=== PATIENT | male | born 1965 | race Caucasian/White ===

== ENCOUNTER 2022-07-23 10:56 | Day surgery (SDC) | payer OTHER ==
[~2022-07-23] VITALS: Ht 175.3 cm; Wt 88.5 kg
[2022-07-23] MEDS ORDERED: SYNTHROID75 MCG PO (11:22)
--- NOTE | 2022-07-23 12:35 | NUR ---
07/23/22 1235 Cinthia Osorio 1231 PT ARRIVED WITH EYES OPEN AND RESONDING TO QUESTIONS. 3LPM NC NONLABORED BREATHING. DENIES PAIN AND NAUSEA.
--- NOTE | 2022-07-23 20:49 | OR ---
[facility] [address], [place] [address] Signed DATE OF OPERATION: 07/23/2022 SURGEON: Alfredo Corcoran MD PREOPERATIVE DIAGNOSES: 1. Gastroesophageal reflux symptoms with dysphagia. 2. Colon screening. POSTOPERATIVE DIAGNOSES: 1. Ulcerative distal esophagitis with low-grade stricture, no evidence of malignancy; associated hiatal hernia. 2. Normal colon to cecum. PROCEDURES: 1. Esophagogastroduodenoscopy with biopsy. 2. Total colonoscopy to cecum. ANESTHESIA: Intravenous sedation, fentanyl 150 mcg and Versed 9 mg (total). INDICATIONS: This 57-year-old white man is from [place], [place], is self-referred for consideration of colon screening based on his age as well as complaints of gastroesophageal reflux with dysphagia, particularly to bread. He has no family history of colon cancer and no bleeding, diarrhea, or constipation. As regard to his reflux symptoms, he has variably taken medication in the past, but has dysphagia primarily to bread, but no hematemesis or weight loss. He has substernal burning pain and epigastric pain. He is admitted to undergo upper endoscopy and colonoscopy concurrently, understand the risks of bleeding, infection, and perforation. FINDINGS: Upper endoscopy did show ulcerative distal esophagitis, but no evidence of Napoles epithelium and no sign of malignancy. There was a low-grade inflammatory stricture. The hiatal hernia was also noted. The stomach and duodenum were otherwise normal. The mid esophagus was normal as well. On colonoscopy, the prep was excellent. Complete colonoscopy to the cecum showed no sign of polyps, diverticular formation, colitis, or cancer. DESCRIPTION OF PROCEDURE: Electronically Signed By: ALFREDO CORCORAN MD 07/23/22 2049 PATIENT NAME: NANCY SOLIS OPERATIVE REPORT DATE OF : 69 REPORT #: [id number] PHYSICIAN: ALFREDO CORCORAN MD PCP: NO PRIMARY CARE PHYSICIAN REPORT IS CONFIDENTIAL AND NOT TO BE RELEASED WITHOUT AUTHORIZATION [facility] [address], [place] [address] Signed The patient was brought to the endoscopy suite given topical lidocaine, hypopharyngeal anesthesia and placed in lateral decubitus position. He was given intravenous sedation to the point of slurred speech and nystagmus. A bite block was placed. An Olympus video upper endoscope was passed in the hypopharynx. The vocal cords appeared normal. The scope was advanced to the esophagus without problem throughout its length it was normal except in the distal portion, where there was ulcerative changes and low-grade stricturing. There was no sign of Napoles epithelium proper, no sign of malignancy. Scope was passed into the stomach, which was insufflated with air. Rugal folds appeared normal. Excess gastric juices were suctioned free. The antrum was normal as was the pylorus. The scope was passed through into the duodenum, which was normal. Biopsies were taken of the second and bulbar portions to assess for celiac disease. The scope was withdrawn. Biopsies taken of the antrum for both FERNANDO and pathologic testing. Retroflexed view was undertaken showing a glvgskyl-yv-rmzgi hiatal hernia. The scope was withdrawn and biopsies taken multiple of the distal esophageal inflammatory area including a low-grade stricture. Further withdrawal of scope allowed for biopsy of the midesophagus, which showed no clinical or endoscopic evidence of stricture or eosinophilic esophagitis. Further withdrawal of scope showed no other findings. Plans were then made for colonoscopy. Digital rectal examination was performed and additional sedation given. The Olympus video colonoscope was passed into the rectum and manipulated throughout the colon ultimately intubating the cecum itself. The ileocecal valve and appendiceal orifice were normal. Scope was withdrawn from that point and examination throughout showed no sign of polyps, diverticular formation, colitis, or cancer. Retroflexed view was normal as well. The scope was removed. The patient was taken to the recovery room in good condition. CONCLUDING DIAGNOSES: 1. Normal colon to cecum. 2. Gastroesophageal reflux related ulcerative low-grade stricture and hiatal hernia. PLAN: We will initiate Prilosec 20 mg p.o. daily. We will see him back in the office in 4-6 weeks and review his pathology report. We would recommend repeat colonoscopy in 10 years or sooner if clinically indicated. Alfredo Corcoran MD /PIPO /[id number] Electronically Signed By: ALFREDO CORCORAN MD 07/23/229 PATIENT NAME: NANCY SOLIS OPERATIVE REPORT DATE OF : 69 REPORT #: [id number] PHYSICIAN: ALFREDO CORCORAN MD PCP: NO PRIMARY CARE PHYSICIAN REPORT IS CONFIDENTIAL AND NOT TO BE RELEASED WITHOUT AUTHORIZATION [address] [address] Signed Copies: ~ Electronically Signed By: ALFREDO CORCORAN MD 07/23/22 2049 PATIENT NAME: ALLAN SOLISTala CORLEY OPERATIVE REPORT DATE OF : 69 REPORT #: [id number] PHYSICIAN: ALFREDO CORCORAN MD PCP: NO PRIMARY CARE PHYSICIAN REPORT IS CONFIDENTIAL AND NOT TO BE RELEASED WITHOUT AUTHORIZATION
--- NOTE | 2022-07-25 16:00 | PATH ---
[facility] [address], [place] [address] Signed SPECIMEN(S): A DUODENAL BIOPSY SPECIMEN(S): B ANTRUM BIOPSY SPECIMEN(S): C DISTAL ESOPHAGEAL BIOPSY SPECIMEN(S): D MIDDLE ESOPHAGEAL BIOPSY SPECIMEN SOURCE: A. DUODENAL BIOPSY B. ANTRUM BIOPSY C. DISTAL ESOPHAGEAL BIOPSY D. MIDDLE ESOPHAGEAL BIOPSY CLINICAL HISTORY: Screening; dysphagia, distal esophageal stricture, small hiatal hernia, esophagitis (erosive), normal colon. FINAL PATHOLOGIC DIAGNOSIS: A. Duodenal biopsy: - Benign duodenal mucosa, negative for specific diagnostic abnormality. B. Antrum biopsy: - Benign gastric antral-type mucosa with slight reactive features. - Negative for evidence of Helicobacter organisms on routine HE stained sections. C. Distal esophageal biopsy: - Esophageal mucosa with focal epithelial ulceration and mixed acute inflammation. - PAS with diastase stain is negative for organisms. - A cytokeratin AE 1/3 immunostain is negative for occult carcinoma. D. Middle esophageal biopsy: - Benign esophageal mucosa, negative for increased epithelial eosinophils. JVR:renetta:[id number] MICROSCOPIC EXAMINATION: Histologic sections of all submitted blocks are examined by light microscopy. These findings, together with the gross examination, support the pathologic diagnosis. Immunos and special stains are performed with appropriate controls on block (C1) and show the following: - PAS with diastase: Negative for fungal organisms. - CK AE1/3: Negative for occult carcinoma. JVR:renetta PATIENT NAME: ALLAN NORIEGATala CORLEY PATHOLOGY DATE OF : 69 REPORT #: [id number] PHYSICIAN: KARTHIK PATHOLOGY PCP: NO PRIMARY CARE PHYSICIAN REPORT IS CONFIDENTIAL AND NOT TO BE RELEASED WITHOUT AUTHORIZATION [facility] [address], [place] [address] Signed GROSS DESCRIPTION: A. The specimen, labeled and designated "Noriega, duodenum biopsy," is received in formalin and consists of two shin soft tissue fragments, ranging from 0.1-0.2 cm. Entirely submitted in (A1). B. The specimen, labeled and designated "Noriega, antrum biopsy," is received in formalin and consists of one shin soft tissue fragment, 0.1 cm. Entirely submitted in (B1). C. The specimen, labeled and designated "Noriega, distal esophagus stricture biopsy," is received in formalin and consists of four shin soft tissue fragments, ranging from 0.1-0.2 cm. Entirely submitted in (C1). D. The specimen, labeled and designated "Noriega, middle esophagus biopsy," is received in formalin and consists of three shin soft tissue fragments, ranging from 0.2-0.5 cm. Entirely submitted in (D1). JS (under the direct supervision of a pathologist) The Gross Description was prepared using a voice recognition system. The report was reviewed for accuracy; however, sound-alike word errors, addition and/or deletions may occur. If there is any question about this report, please contact Client Services. ADDITIONAL NOTES: Immunohistochemical and/or in situ hybridization studies were performed on this case with the appropriate positive controls that react as expected. This test was developed and its performance characteristics determined by [facility]. It has not been cleared or approved by the U.S. Food and Drug Administration. The FDA has determined that such clearance or approval is not necessary. This test is used for clinical purposes. It should not be regarded as investigational or for research. [facility] is certified under the Clinical Laboratory Improvement Amendments of 1988 (CLIA) as qualified to perform high complexity clinical laboratory testing. This assay has not been validated for specimens that have been decalcified. PERFORMING LABORATORY: The technical component was performed by [facility], [address] [place] [id number] (CLIA# [id number]). Professional interpretation was performed by [facility], [address] [place] [address] [place] [address] (CLIA#: [id number]). PATIENT NAME: NANCY NORIEGA PATHOLOGY DATE OF : 69 REPORT #: [id number] PHYSICIAN: KARTHIK PATHOLOGY PCP: NO PRIMARY CARE PHYSICIAN REPORT IS CONFIDENTIAL AND NOT TO BE RELEASED WITHOUT AUTHORIZATION [facility] [address] [place] [id number] Signed Diagnostician: Chaz Chirinos MD Pathologist Electronically Signed 07/25/2022 Copies: ~ PATIENT NAME: NANCY NORIEGA PATHOLOGY DATE OF : 69 REPORT #: [id number] PHYSICIAN: KARTHIK PATHOLOGY PCP: NO PRIMARY CARE PHYSICIAN REPORT IS CONFIDENTIAL AND NOT TO BE RELEASED WITHOUT AUTHORIZATION
== END 2022-07-23 13:20 | disposition home or self-care (01) ==
LOC: DS 10:56 → OPS 10:56 → DS 14:00
PROVIDERS: ATTEND Surgery
PROC: 0DB68ZX Excision of Stomach, Via Natural or Artificial Opening Endoscopic, Diagnostic (ICD-10-PCS; principal; 2022-07-23 12:00)
PROC: 0DJD8ZZ Inspection of Lower Intestinal Tract, Via Natural or Artificial Opening Endoscopic (ICD-10-PCS; 2022-07-23 12:00)
DX: Z12.11 Encounter for screening for malignant neoplasm of colon (principal); K22.10 Ulcer of esophagus without bleeding; K21.00 Gastro-esophageal reflux disease with esophagitis, without bleeding; E03.9 Hypothyroidism, unspecified
CPT/HCPCS: 99153; G0500; J2250; J3010; J7121